=== PATIENT | female | born 1990 | race Two or more races ===

== ENCOUNTER → 2021-03-10 | Outpatient (CLI) | payer OTHER, BC ==
--- NOTE | 2021-03-10 14:52 | US ---
EXAMINATION TYPE: Transabdominal DATE OF EXAM: 03/10/2021 2:30 PM COMPARISON: NONE CLINICAL HISTORY: O46.91. spotting EXAM PERFORMED: Transvaginal (TV) and Transabdominal (TA) EXAM MEASUREMENTS: GESTATIONAL AGE / DATING Physician Established: Not yet established Dates by LMP: 01/18/2021 (7 weeks/2 days) EDC: 10/25/2021 Dates by First Scan: No previous this is first scan Dates by Current Scan for: No IUP seen at this time MATERNAL ANATOMY Uterus: 6.2 x 2.9 x 3.7 cm Right Ovary: 2.7 x 1.8 x 3.4 cm Left Ovary: 3.5 x 2.4 x 4.3 cm Post CDS / Adnexa: fluid collection with internal debris Presence of corpus luteal cyst: left ovarian cyst measures 2.5 x 1.9 x 2.4 cm. GESTATION / SURVEY No evidence of an IUP at this time. There is a fluid collectin with debris in cul de sac. Date of LMP: 01/18/2021 Beta HcG (if available): not available No IUP identified. Fluid collection with debris in cul de sac. IMPRESSION: No evidence for intrauterine at this time. In the setting of a positive beta hCG 3 possibil ities exist which include a normal early IUP, missed spontaneous as well as ectopic pregnanc y. Correlate clinically with serial beta hCG and/or ultrasound.
== END | disposition home or self-care (01) ==
LOC: RADUSWWP 14:09
PROVIDERS: ATTEND Obstetrics & Gynecology
DX: O26.851 Spotting complicating pregnancy, first trimester (principal)
CPT/HCPCS: 76801; 76817